=== PATIENT | male | born 1975 | race Hispanic/Latino ===

== ENCOUNTER 2018-10-27 15:13 | Outpatient (CLI) | payer OTHER ==
--- NOTE | 2018-10-27 16:28 | MRI ---
MRI OF THE LEFT KNEE WITHOUT CONTRAST: 10/27/18 INDICATION: Left knee pain, predominantly laterally with swelling. COMPARISON: Left knee radiograph dated 09/28/18. FINDINGS: There is subcutaneous swelling involving the anterior aspect of the left knee. There is mild edema ov erlying the MCL. The ACL, PCL, and LCLC are intact. The lateral and medial meniscus appears intact. No full thickness articular cartilage defect is grossly evident. There is mild diffuse thinning invol ving the femorotibial compartment. No large joint effusion is evident. No acute fracture is demonstra margie. The extensor mechanism is intact. IMPRESSION: 1. Subcutaneous edema involving the anterior left knee. 2. Grade I MCL sprain. 3. Mild chondrosis of the femorotibial compartments. POS: [facility]
== END 2018-10-27 15:14 | disposition home or self-care (01) ==
LOC: BICMRI 15:13
PROVIDERS: ATTEND Family Medicine
DX: S89.92XD Unspecified injury of left lower leg, subsequent encounter (principal); R60.0 Localized edema; S83.412A Sprain of medial collateral ligament of left knee, initial encounter; M22.2X2 Patellofemoral disorders, left knee

== ENCOUNTER 2022-12-29 14:45 | Inpatient (IN) | payer SELFPAY ==
[2022-12-29 15:19] LABS: #Eosinphils 0.1 thou/uL (0.0-0.7); #Monocytes 1.4 thou/uL (0.11-0.59); #Neutrophils 10.8 thou/uL (1.40-6.50); %Basophils 0.3 % (0.0-1.0); %Eosinophils 0.4 % (0.0-10.0); %Lymphocytes 8.3 % (21.0-51.0); %Neutrophils 79.4 % (42.0-75.0); Hematocrit 39.8 % (42.0-52.0); Hemoglobin 13.5 g/dL (14.0-18.0); Mean Corpuscular HGB CONC 33.9 g/dL (32.0-36.0); Mean Corpuscular Hemoglobin 32.5 pg (27.0-31.0); Mean Corpuscular Volume 95.9 fl (78.0-98.0); Mean Platelet Volume 11.2 fL (7.4-10.4); Platelet Count 141 10x3/uL (130-400); RBC Distribution Width 19.7 % (11.5-14.5); Red Blood Cell (RBC) Count 4.15 mill/uL (4.70-6.10); White Blood Cell (WBC) Count 13.6 10x3/uL (4.8-10.8)
[2022-12-29 15:45] LABS: ALT (SGPT) 393 U/L (8-55); AST (SGOT) 469 U/L (5-34); Albumin 2.4 g/dL (3.5-5.0); Alkaline Phosphatase 282 U/L (40-110); Lipase 786 U/L (8-78); Protein, Total 6.2 g/dL (6.0-8.3)
[2022-12-29 15:52] LABS: Chloride 103 mmol/L (98-107); Potassium 4.8 mmol/L (3.5-5.1); Sodium 133 mmol/L (136-145)
[2022-12-29 15:56] LABS: Acetaminophen Less than 10 mcg/mL (10.0-30.0); Alcohol Less than 10.0 mg/dL (Less than 10); Salicylate Less than 8.0 mg/dL (15.0-30.0)
[2022-12-29 16:07] LABS: Bilirubin, Total 23.5 mg/dL (0.2-1.2)
[2022-12-29] MEDS ORDERED: Ketorolac Tromethamine 30 MG/ML VIAL ONE (16:08)
[2022-12-29 16:13] LABS: ALT (SGPT) 407 U/L (8-55); AST (SGOT) 482 U/L (5-34); Albumin 2.3 g/dL (3.5-5.0); Alkaline Phosphatase 272 U/L (40-110); BUN (Urea Nitrogen) 26 mg/dL (8.9-20.6); Bilirubin, Total 24.2 mg/dL (0.2-1.2); Calc. Creatinine Clearance 0 mL/min (70-130); Calcium 7.9 mg/dL (7.8-10.44); Carbon Dioxide 21 mmol/L (22-29); Estimated GFR 56; Globulin 3.7 g/dL (2.4-3.5); Glucose 102 mg/dL (70-105)
[2022-12-29 16:32] LABS: Anion Gap 14 mmol/L (10-20)
[2022-12-29] MEDS ORDERED: Ondansetron PF 4 MG/2 ML Vial IVP PRN (16:42)
[2022-12-29] MEDS ORDERED: Promethazine HCl 25 MG/ML VIAL IM PRN (16:42)
[2022-12-29] MEDS ORDERED: Ondansetron PF 4 MG/2 ML Vial ONE (16:48)
[2022-12-29 17:17] LABS: INR-International Normal Ratio 1.9; PTT 47.4 sec (22.9-36.1); Prothrombin Time 22.2 sec (12.0-14.7)
[2022-12-29 17:37] LABS: Bilirubin, Direct Greater than 10.0 mg/dL (0.1-0.3)
[2022-12-29 17:42] LABS: Acetaminophen Less than 10 mcg/mL (10.0-30.0); Alcohol Less than 10.0 mg/dL (Less than 10); Magnesium 2.4 mg/dL (1.6-2.6); Salicylate Less than 8.0 mg/dL (15.0-30.0)
[2022-12-29] MEDS: Sodium Chloride 0.9% 1,000 ML IV SCH (20:47)
[2022-12-29 21:35] VITALS: BMI 43.5
[2022-12-30] MEDS: Sodium Chloride 0.9% 1,000 ML IV SCH ×3 (05:13→16:58)
[2022-12-30] MEDS ORDERED: FLU VACC QS2023-24(6MOS UP)/PF 60 MCG/0.5 ML SYRINGE IM ONE (09:00)
[2022-12-30 09:01] LABS: #Basophils 0.1 thou/uL (0.0-0.2); #Eosinphils 0.1 thou/uL (0.0-0.7); #Monocytes 1.4 thou/uL (0.11-0.59); #Neutrophils 9.4 thou/uL (1.40-6.50); %Basophils 0.5 % (0.0-1.0); %Eosinophils 1.1 % (0.0-10.0); %Lymphocytes 9.9 % (21.0-51.0); %Monocytes 11.6 % (0.0-10.0); %Neutrophils 75.4 % (42.0-75.0); Hematocrit 39.1 % (42.0-52.0); Hemoglobin 13.6 g/dL (14.0-18.0); Mean Corpuscular HGB CONC 34.8 g/dL (32.0-36.0); Mean Corpuscular Volume 94.9 fl (78.0-98.0); Mean Platelet Volume 11.9 fL (7.4-10.4); Platelet Count 134 10x3/uL (130-400); RBC Distribution Width 19.9 % (11.5-14.5); Red Blood Cell (RBC) Count 4.12 mill/uL (4.70-6.10); White Blood Cell (WBC) Count 12.4 10x3/uL (4.8-10.8)
[2022-12-30 10:04] LABS: ALT (SGPT) 356 U/L (8-55); AST (SGOT) 445 U/L (5-34); Albumin 2.2 g/dL (3.5-5.0); Alkaline Phosphatase 256 U/L (40-110); Anion Gap 15 mmol/L (10-20); BUN (Urea Nitrogen) 28 mg/dL (8.9-20.6); Bilirubin, Total 22.1 mg/dL (0.2-1.2); Calc. Creatinine Clearance 135 mL/min (70-130); Calcium 7.9 mg/dL (7.8-10.44); Carbon Dioxide 21 mmol/L (22-29); Chloride 105 mmol/L (98-107); Estimated GFR 62; Globulin 4.2 g/dL (2.4-3.5); Glucose 69 mg/dL (70-105); Potassium 4.9 mmol/L (3.5-5.1); Protein, Total 6.4 g/dL (6.0-8.3); Sodium 136 mmol/L (136-145)
[2022-12-30] MEDS: cefTRIAXone\\ROCEPHIN 2 GM in Sodium Chloride 0.9% 100 ML IVPB SCH (11:31)
[2022-12-30] MEDS ORDERED: Lidocaine 1% PF 5 ML VIAL ONE (12:13)
[2022-12-30] MEDS ORDERED: Sodium Bicarbonate 2.5 MEQ/5 ML VIAL ONE (12:13)
[2022-12-30] MEDS ORDERED: Magnevist 469MG/ML 20 ML VIAL ONE (13:59)
[2022-12-30 15:26] LABS: RBC Count-Automated (BF) 314 /cu.mm; WBC/Nucleated-Auto (BF) 93 /cu.mm
[2022-12-30 15:30] LABS: BF Color Yellow; Body Fluid Source Ascites Body Fluid; Clarity Hazy (Clear); Tube # EDTA
[2022-12-30 15:35] LABS: Fluid, Cholesterol Less than 9 mg/dL (Not Available); Fluid, Glucose 83 mg/dL (Not Available); Fluid, LDH 66 U/L (Not Available); Fluid, Protein Less than 1.0 g/dL (Not Available)
[2022-12-30 16:13] LABS: Bilirubin 4+ (Negative); Blood, Urine Trace (Negative); Clarity Turbid (Clear); Glucose, Urine (Dipstick) Normal (Negative); Ketone, Urine Negative (Negative); Leukocyte Negative Leu/uL (Negative); Nitrite Negative (Negative); Protein, Urine (Dipstick) Negative (Neg-Trace); RBC/HPF 0-3 HPF (0-3); Specific Gravity, Urine 1.019 (1.002-1.036); Squamous Epithelial None Seen HPF (0-3); Urobilinogen Normal mg/dL (Less than 2); pH, Urine 5.5 (5.0-9.0)
[2022-12-30 16:17] LABS: Bacteria/HPF 1+ HPF (None Seen)
[2022-12-30 16:39] LABS: BF Segmented Neutrophils 30 %; Cell Count Non Hematic 44 %; Eosinophils 1 %; Lymphocytes 24 %
[2022-12-30] MEDS: Albumin 25% 25 GM/100 ML BOT IVPB SCH ×2 (17:40→23:37)
[2022-12-31] MEDS: Sodium Chloride 0.9% 1,000 ML IV SCH (04:17)
[2022-12-31] MEDS: Albumin 25% 25 GM/100 ML BOT IVPB SCH ×2 (05:05→11:35)
[2022-12-31 06:49] LABS: #Eosinphils 0.3 thou/uL (0.0-0.7); #Monocytes 1.5 thou/uL (0.11-0.59); #Neutrophils 7.4 thou/uL (1.40-6.50); %Basophils 0.4 % (0.0-1.0); %Eosinophils 2.8 % (0.0-10.0); %Lymphocytes 11.3 % (21.0-51.0); %Monocytes 14.1 % (0.0-10.0); %Neutrophils 70.2 % (42.0-75.0); Hematocrit 35.6 % (42.0-52.0); Hemoglobin 12.5 g/dL (14.0-18.0); Mean Corpuscular HGB CONC 35.1 g/dL (32.0-36.0); Mean Corpuscular Hemoglobin 33.7 pg (27.0-31.0); Mean Platelet Volume 11.9 fL (7.4-10.4); Platelet Count 143 10x3/uL (130-400); RBC Distribution Width 19.8 % (11.5-14.5); Red Blood Cell (RBC) Count 3.71 mill/uL (4.70-6.10); White Blood Cell (WBC) Count 10.5 10x3/uL (4.8-10.8)
[2022-12-31 07:03] LABS: Bilirubin, Total 27.3 mg/dL (0.2-1.2)
[2022-12-31 07:10] LABS: Immunoglob - G (Total IgG) 2532 mg/dL (540-1822)
[2022-12-31 07:11] LABS: Immunoglob - M (Total IgM) 90 mg/dL (22-240)
[2022-12-31 07:44] LABS: ALT (SGPT) 316 U/L (8-55); AST (SGOT) 371 U/L (5-34); Alkaline Phosphatase 246 U/L (40-110); Anion Gap 12 mmol/L (10-20); BUN (Urea Nitrogen) 25 mg/dL (8.9-20.6); Calc. Creatinine Clearance 134 mL/min (70-130); Calcium 8.6 mg/dL (7.8-10.44); Carbon Dioxide 24 mmol/L (22-29); Chloride 103 mmol/L (98-107); Estimated GFR 62; Globulin 3.4 g/dL (2.4-3.5); Glucose 75 mg/dL (70-105); Potassium 3.8 mmol/L (3.5-5.1); Protein, Total 6.4 g/dL (6.0-8.3); Sodium 135 mmol/L (136-145)
[2022-12-31 08:58] LABS: INR-International Normal Ratio 2.3; Prothrombin Time 26.2 sec (12.0-14.7)
[2022-12-31] MEDS: cefTRIAXone\\ROCEPHIN 2 GM in Sodium Chloride 0.9% 100 ML IVPB SCH (10:46)
[2022-12-31] MEDS ORDERED: Phytonadione 10 MG/ML AMP PO SCH (11:00)
[2022-12-31] MEDS ORDERED: Polyethylene Glycol 3350 17 GM Packet PO SCH (11:00)
[2022-12-31] MEDS: methylPREDNISolone Sod Succ 40 MG VIAL IVP SCH (20:25)
[2023-01-01 06:14] LABS: #Monocytes 0.3 thou/uL (0.11-0.59); #Neutrophils 7.3 thou/uL (1.40-6.50); %Basophils 0.1 % (0.0-1.0); %Eosinophils 0.1 % (0.0-10.0); %Lymphocytes 7.8 % (21.0-51.0); %Monocytes 3.2 % (0.0-10.0); %Neutrophils 87.8 % (42.0-75.0); Hematocrit 33.6 % (42.0-52.0); Hemoglobin 11.5 g/dL (14.0-18.0); Mean Corpuscular HGB CONC 34.2 g/dL (32.0-36.0); Mean Corpuscular Hemoglobin 32.6 pg (27.0-31.0); Mean Corpuscular Volume 95.2 fl (78.0-98.0); Mean Platelet Volume 10.7 fL (7.4-10.4); Platelet Count 87 10x3/uL (130-400); RBC Distribution Width 19.1 % (11.5-14.5); Red Blood Cell (RBC) Count 3.53 mill/uL (4.70-6.10); White Blood Cell (WBC) Count 8.3 10x3/uL (4.8-10.8)
[2023-01-01 07:14] LABS: ALT (SGPT) 230 U/L (8-55); AST (SGOT) 289 U/L (5-34); Albumin 2.6 g/dL (3.5-5.0); Alkaline Phosphatase 191 U/L (40-110); Anion Gap 14 mmol/L (10-20); BUN (Urea Nitrogen) 22 mg/dL (8.9-20.6); Bilirubin, Total 23.1 mg/dL (0.2-1.2); Calc. Creatinine Clearance 149 mL/min (70-130); Calcium 7.8 mg/dL (7.8-10.44); Carbon Dioxide 22 mmol/L (22-29); Chloride 104 mmol/L (98-107); Estimated GFR 70; Globulin 2.8 g/dL (2.4-3.5); Glucose 102 mg/dL (70-105); Potassium 4.6 mmol/L (3.5-5.1); Protein, Total 5.4 g/dL (6.0-8.3); Sodium 135 mmol/L (136-145)
[2023-01-01 08:14] LABS: Prothrombin Time 23.8 sec (12.0-14.7)
[2023-01-01] MEDS: Polyethylene Glycol 3350 17 GM Packet PO SCH (08:17)
[2023-01-01] MEDS: methylPREDNISolone Sod Succ 40 MG VIAL IVP SCH ×2 (08:20→20:11)
[2023-01-01] MEDS: cefTRIAXone\\ROCEPHIN 2 GM in Sodium Chloride 0.9% 100 ML IVPB SCH (11:28)
[2023-01-01 11:36] LABS: INR-International Normal Ratio 1.9; Prothrombin Time 22.5 sec (12.0-14.7)
[2023-01-01 12:53] LABS: EliA Vaculitis New Method **** NEW METHOD ****; Mitochondrial Ab 2.2 U/mL (<4 Negative)
[2023-01-02 06:44] LABS: #Monocytes 0.6 thou/uL (0.11-0.59); %Basophils 0.2 % (0.0-1.0); %Lymphocytes 7.4 % (21.0-51.0); %Monocytes 4.1 % (0.0-10.0); %Neutrophils 87.6 % (42.0-75.0); Hematocrit 37.4 % (42.0-52.0); Hemoglobin 12.8 g/dL (14.0-18.0); Mean Corpuscular HGB CONC 34.2 g/dL (32.0-36.0); Mean Corpuscular Hemoglobin 33.4 pg (27.0-31.0); Mean Corpuscular Volume 97.7 fl (78.0-98.0); Mean Platelet Volume 11.5 fL (7.4-10.4); RBC Distribution Width 19.4 % (11.5-14.5); Red Blood Cell (RBC) Count 3.83 mill/uL (4.70-6.10); White Blood Cell (WBC) Count 13.7 10x3/uL (4.8-10.8)
[2023-01-02 06:45] LABS: Platelet Count 76 10x3/uL (130-400)
[2023-01-02 06:51] LABS: INR-International Normal Ratio 1.9; Prothrombin Time 22.5 sec (12.0-14.7)
[2023-01-02 07:20] LABS: ALT (SGPT) 204 U/L (8-55); AST (SGOT) 223 U/L (5-34); Albumin 2.9 g/dL (3.5-5.0); Alkaline Phosphatase 225 U/L (40-110); Anion Gap 14 mmol/L (10-20); BUN (Urea Nitrogen) 26 mg/dL (8.9-20.6); Calc. Creatinine Clearance 164 mL/min (70-130); Calcium 8.5 mg/dL (7.8-10.44); Carbon Dioxide 21 mmol/L (22-29); Chloride 104 mmol/L (98-107); Estimated GFR 79; Globulin 3.2 g/dL (2.4-3.5); Glucose 118 mg/dL (70-105); Potassium 4.8 mmol/L (3.5-5.1); Protein, Total 6.1 g/dL (6.0-8.3); Sodium 134 mmol/L (136-145)
[2023-01-02 07:38] LABS: Bilirubin, Total 24.3 mg/dL (0.2-1.2)
[2023-01-02] MEDS: methylPREDNISolone Sod Succ 40 MG VIAL IVP SCH ×2 (08:21→20:49)
[2023-01-02] MEDS: Polyethylene Glycol 3350 17 GM Packet PO SCH (08:21)
[2023-01-02] MEDS ORDERED: Non-Formulary Item 1 EACH (Omeprazole [Omeprazole] 20 MG Capsule.Dr) PO SCH (09:00)
[2023-01-02] MEDS ORDERED: Non-Formulary Item 1 EACH (Olmesartan Medoxomil [Olmesartan Medoxomil] 40 MG Tablet) PO SCH (09:00)
[2023-01-02] MEDS: Losartan 25 MG TAB PO SCH (09:03)
[2023-01-02] MEDS: cefTRIAXone\\ROCEPHIN 2 GM in Sodium Chloride 0.9% 100 ML IVPB SCH (10:24)
[2023-01-03 06:53] LABS: #Monocytes 1.1 thou/uL (0.11-0.59); #Neutrophils 15.4 thou/uL (1.40-6.50); %Basophils 0.2 % (0.0-1.0); %Lymphocytes 6.3 % (21.0-51.0); %Monocytes 6.2 % (0.0-10.0); %Neutrophils 85.6 % (42.0-75.0); Hemoglobin 12.4 g/dL (14.0-18.0); Mean Corpuscular HGB CONC 34.4 g/dL (32.0-36.0); Mean Corpuscular Hemoglobin 32.8 pg (27.0-31.0); Mean Corpuscular Volume 95.2 fl (78.0-98.0); Mean Platelet Volume 10.7 fL (7.4-10.4); Platelet Count 93 10x3/uL (130-400); RBC Distribution Width 19.5 % (11.5-14.5); Red Blood Cell (RBC) Count 3.78 mill/uL (4.70-6.10); White Blood Cell (WBC) Count 17.9 10x3/uL (4.8-10.8)
[2023-01-03 07:04] LABS: Prothrombin Time 23.7 sec (12.0-14.7)
[2023-01-03 07:21] LABS: ALT (SGPT) 175 U/L (8-55); AST (SGOT) 176 U/L (5-34); Albumin 2.6 g/dL (3.5-5.0); Alkaline Phosphatase 233 U/L (40-110); Anion Gap 10 mmol/L (10-20); BUN (Urea Nitrogen) 27 mg/dL (8.9-20.6); Bilirubin, Total 22.9 mg/dL (0.2-1.2); Calc. Creatinine Clearance 181 mL/min (70-130); Calcium 8.2 mg/dL (7.8-10.44); Carbon Dioxide 25 mmol/L (22-29); Chloride 103 mmol/L (98-107); Estimated GFR 89; Globulin 2.9 g/dL (2.4-3.5); Glucose 127 mg/dL (70-105); Potassium 4.7 mmol/L (3.5-5.1); Protein, Total 5.5 g/dL (6.0-8.3); Sodium 133 mmol/L (136-145)
[2023-01-03] MEDS: Furosemide 20 MG TAB PO SCH (09:21)
[2023-01-03] MEDS: methylPREDNISolone Sod Succ 40 MG VIAL IVP SCH ×2 (09:21→20:32)
[2023-01-03] MEDS: Spironolactone 25 MG TAB PO SCH (09:21)
[2023-01-03] MEDS: Losartan 25 MG TAB PO SCH (09:21)
[2023-01-03] MEDS: Polyethylene Glycol 3350 17 GM Packet PO SCH (09:21)
[2023-01-03] MEDS: cefTRIAXone\\ROCEPHIN 2 GM in Sodium Chloride 0.9% 100 ML IVPB SCH (11:09)
[2023-01-03] MEDS ORDERED: Acetaminophen 325 MG TAB PO SCH (21:30)
[2023-01-03] MEDS: Simethicone Chewable 80 MG TAB PO PRN (21:34)
[2023-01-04] MEDS: Polyethylene Glycol 3350 17 GM Packet PO SCH (09:04)
[2023-01-04] MEDS: Spironolactone 25 MG TAB PO SCH (09:04)
[2023-01-04] MEDS: methylPREDNISolone Sod Succ 40 MG VIAL IVP SCH (09:05)
[2023-01-04] MEDS: Furosemide 20 MG TAB PO SCH (09:05)
[2023-01-04] MEDS: Losartan 25 MG TAB PO SCH (09:05)
[2023-01-04 09:10] LABS: #Monocytes 1.6 thou/uL (0.11-0.59); #Neutrophils 15.8 thou/uL (1.40-6.50); %Basophils 0.2 % (0.0-1.0); %Neutrophils 80.9 % (42.0-75.0); Hematocrit 39.6 % (42.0-52.0); Hemoglobin 13.6 g/dL (14.0-18.0); Mean Corpuscular HGB CONC 34.3 g/dL (32.0-36.0); Mean Corpuscular Hemoglobin 33.1 pg (27.0-31.0); Mean Corpuscular Volume 96.4 fl (78.0-98.0); Mean Platelet Volume 10.4 fL (7.4-10.4); Platelet Count 104 10x3/uL (130-400); RBC Distribution Width 19.9 % (11.5-14.5); Red Blood Cell (RBC) Count 4.11 mill/uL (4.70-6.10); White Blood Cell (WBC) Count 19.6 10x3/uL (4.8-10.8)
[2023-01-04 09:22] LABS: Prothrombin Time 23.2 sec (12.0-14.7)
[2023-01-04 09:54] LABS: ALT (SGPT) 177 U/L (8-55); AST (SGOT) 169 U/L (5-34); Albumin 2.8 g/dL (3.5-5.0); Alkaline Phosphatase 247 U/L (40-110); Anion Gap 14 mmol/L (10-20); BUN (Urea Nitrogen) 29 mg/dL (8.9-20.6); Bilirubin, Total 24.9 mg/dL (0.2-1.2); Calc. Creatinine Clearance 155 mL/min (70-130); Calcium 8.4 mg/dL (7.8-10.44); Carbon Dioxide 25 mmol/L (22-29); Chloride 101 mmol/L (98-107); Estimated GFR 73; Glucose 118 mg/dL (70-105); Potassium 4.7 mmol/L (3.5-5.1); Protein, Total 5.8 g/dL (6.0-8.3); Sodium 135 mmol/L (136-145)
[2023-01-04] MEDS: cefTRIAXone\\ROCEPHIN 2 GM in Sodium Chloride 0.9% 100 ML IVPB SCH (10:52)
[2023-01-04] MEDS: Simethicone Chewable 80 MG TAB PO PRN (10:52)
[2023-01-04 13:49] VITALS: BP 133/80; TEMP 97.7
[2023-01-05] MEDS ORDERED: predniSONE 20 MG TAB PO SCH (08:00)
== END 2023-01-04 17:24 | disposition home or self-care (01) | DRG 432 ==
LOC: ERS 14:45 → T4-B 16:49
PROVIDERS: ADMIT Internal Medicine; ATTEND Hospitalist
PROC: 0W9G3ZX Drainage of Peritoneal Cavity, Percutaneous Approach, Diagnostic (ICD-10-PCS; principal; 2022-12-30)
PROC: 30233J1 Transfusion of Nonautologous Serum Albumin into Peripheral Vein, Percutaneous Approach (ICD-10-PCS; 2022-12-30)
PROC: 30233K1 Transfusion of Nonautologous Frozen Plasma into Peripheral Vein, Percutaneous Approach (ICD-10-PCS; 2023-01-01)
DX: K74.60 Unspecified cirrhosis of liver (principal); K76.7 Hepatorenal syndrome; K85.90 Acute pancreatitis without necrosis or infection, unspecified; N17.9 Acute kidney failure, unspecified; R18.8 Other ascites; K76.6 Portal hypertension; K75.4 Autoimmune hepatitis; I10 Essential (primary) hypertension; K21.9 Gastro-esophageal reflux disease without esophagitis; E88.09 Other disorders of plasma-protein metabolism, not elsewhere classified; K59.00 Constipation, unspecified; D64.9 Anemia, unspecified; Z98.890 Other specified postprocedural states
CPT/HCPCS: 36415; 36430; 49083; 70450; 74183; 76700; 80053; 80307; 81001; 81256; 82103; 82140; 82378; 82390; 82465; 82945; 83516; 83615; 83690; 83735; 84157; 85025; 85060; 85610; 85730; 86301; 86850; 86900; 86901; 87070; 87205; 88112; 88305; 89051; 93005; A9579; J0696; J1885; J2405; J2920; J3430; J3490; J7050; P9047; P9059

== ENCOUNTER 2023-01-22 22:23 | Inpatient (IN) | payer SELFPAY ==
[2023-01-23] MEDS ORDERED: Ondansetron PF 4 MG/2 ML Vial ONE (00:21)
[2023-01-23] MEDS ORDERED: Sodium Chloride 0.9% 100 ML ONE ×2 (00:22→03:18)
[2023-01-23] MEDS ORDERED: cefTRIAXone (ROCEPHIN) 1 GM VIAL ONE (00:22)
[2023-01-23 00:41] LABS: Actual Bicarbonate (HCO3v) 24.3 mEq/L (22-28); Calcium, Ionized (venous) 1.07 mmol/L (1.16-1.32); Chloride (VBG) 92 mmol/L (98-106); Hematocrit-VBG 50 % (42.0-52.0); Potassium (VBG) 5.88 mmol/L (3.70-5.30); Sodium 129 mmol/L (133-146); pH (venous) 7.334 (7.32-7.43)
[2023-01-23 00:49] LABS: #Monocytes 1.3 thou/uL (0.11-0.59); #Neutrophils 12.7 thou/uL (1.40-6.50); %Basophils 0.1 % (0.0-1.0); %Lymphocytes 4.8 % (21.0-51.0); %Monocytes 8.6 % (0.0-10.0); %Neutrophils 82.3 % (42.0-75.0); Hematocrit 45.6 % (42.0-52.0); Hemoglobin 16.3 g/dL (14.0-18.0); Mean Corpuscular HGB CONC 35.7 g/dL (32.0-36.0); Mean Corpuscular Hemoglobin 35.1 pg (27.0-31.0); Mean Corpuscular Volume 98.1 fl (78.0-98.0); RBC Distribution Width 22.1 % (11.5-14.5); Red Blood Cell (RBC) Count 4.65 mill/uL (4.70-6.10); White Blood Cell (WBC) Count 15.4 10x3/uL (4.8-10.8)
[2023-01-23 01:02] LABS: Platelet Count 71 10x3/uL (130-400)
[2023-01-23 01:13] LABS: INR-International Normal Ratio 2.8; PTT 50.3 sec (22.9-36.1); Prothrombin Time 30.8 sec (12.0-14.7)
[2023-01-23 01:15] LABS: Troponin I 0.036 ng/mL (< 0.028)
[2023-01-23 01:20] LABS: Bilirubin, Total 34.1 mg/dL (0.2-1.2)
[2023-01-23 01:53] LABS: ALT (SGPT) 275 U/L (8-55); AST (SGOT) 304 U/L (5-34); Albumin 2.2 g/dL (3.5-5.0); Alkaline Phosphatase 245 U/L (40-110); Anion Gap 19 mmol/L (10-20); BUN (Urea Nitrogen) 76 mg/dL (8.9-20.6); Calc. Creatinine Clearance 0 mL/min (70-130); Calcium 8.5 mg/dL (7.8-10.44); Carbon Dioxide 23 mmol/L (22-29); Chloride 92 mmol/L (98-107); Estimated GFR 22; Globulin 3.4 g/dL (2.4-3.5); Glucose 124 mg/dL (70-105); Lipase 207 U/L (8-78); Potassium 5.9 mmol/L (3.5-5.1); Protein, Total 5.6 g/dL (6.0-8.3); Sodium 128 mmol/L (136-145)
[2023-01-23 01:55] LABS: Platelet Adequacy Comment Appears Decreased
[2023-01-23] MEDS ORDERED: Albumin 25% 25 GM/100 ML BOT IVPB SCH ×2 (03:15→09:00)
[2023-01-23] MEDS ORDERED: Piperacillin/Tazobactam 4.5 GM VIAL ONE (03:17)
[2023-01-23] MEDS ORDERED: Calcium Gluc 4.6 MEQ/10 ML (100 MG/ML) SLOW IVP ONE (03:26)
[2023-01-23] MEDS ORDERED: Vancomycin (BATCH) 2 GM in Premix 1 BAG IVPB SCH (03:30)
[2023-01-23] MEDS ORDERED: Dextrose 5 %-0.45 % NaCl 1,000 ML IV SCH (03:30)
[2023-01-23] MEDS ORDERED: CALCIUM GLUC 1 GM/NS 50 ML 1 GM in Premix 1 BAG IVPB SCH (03:45)
[2023-01-23 03:52] LABS: Lactic Acid 3.3 mmol/L (0.5-2.2)
[2023-01-23] MEDS ORDERED: Piperacillin/Tazobactam 3.375 GM in Sodium Chloride 0.9% 100 ML IVPB SCH ×2 (07:00→09:00)
[2023-01-23 07:39] VITALS: BMI 40.9
[2023-01-23] MEDS: Sodium Bicarbonate 100 MEQ in Dextrose 5% in Water 1,000 ML IV SCH ×2 (08:29→20:00)
[2023-01-23] MEDS ORDERED: Morphine 4 MG/ML VIAL SLOW IVP PRN (08:39)
[2023-01-23] MEDS ORDERED: Morphine 2 MG/ML VIAL SLOW IVP PRN (08:39)
[2023-01-23 09:54] LABS: Anion Gap 18 mmol/L (10-20); BUN (Urea Nitrogen) 79 mg/dL (8.9-20.6); Calc. Creatinine Clearance 56 mL/min (70-130); Calcium 8.1 mg/dL (7.8-10.44); Carbon Dioxide 21 mmol/L (22-29); Chloride 96 mmol/L (98-107); Estimated GFR 23; Glucose 139 mg/dL (70-105); Potassium 5.3 mmol/L (3.5-5.1); Sodium 130 mmol/L (136-145)
[2023-01-23] MEDS: Ondansetron PF 4 MG/2 ML Vial IVP PRN (10:00)
[2023-01-23] MEDS ORDERED: LOKELMA 10 GM PACKET PO SCH (10:15)
[2023-01-23 10:38] LABS: Troponin I 0.037 ng/mL (< 0.028)
[2023-01-23] MEDS ORDERED: FLU VACC QS2023-24(6MOS UP)/PF 60 MCG/0.5 ML SYRINGE IM ONE (12:45)
[2023-01-23 16:25] LABS: Anion Gap 16 mmol/L (10-20); BUN (Urea Nitrogen) 79 mg/dL (8.9-20.6); Calc. Creatinine Clearance 53 mL/min (70-130); Calcium 8.1 mg/dL (7.8-10.44); Carbon Dioxide 24 mmol/L (22-29); Chloride 94 mmol/L (98-107); Estimated GFR 22; Glucose 147 mg/dL (70-105); Sodium 129 mmol/L (136-145)
[2023-01-23] MEDS ORDERED: Ursodiol 300 MG CAP PO SCH (17:00)
[2023-01-23 18:02] LABS: Bacteria/HPF None Seen HPF (None Seen); Bilirubin 3+ (Negative); Blood, Urine 1+ (Negative); Clarity Turbid (Clear); Glucose, Urine (Dipstick) Normal (Negative); Ketone, Urine Negative (Negative); Leukocyte 25 Leu/uL (Negative); Nitrite Negative (Negative); Protein, Urine (Dipstick) 10 mg/dL (Neg-Trace); RBC/HPF 0-3 HPF (0-3); Specific Gravity, Urine 1.018 (1.002-1.036); Squamous Epithelial 0-3 HPF (0-3); Urobilinogen Normal mg/dL (Less than 2); pH, Urine 5.5 (5.0-9.0)
[2023-01-23] MEDS: Piperacillin/Tazobactam 3.375 GM in Sodium Chloride 0.9% 100 ML IVPB SCH (22:44)
[2023-01-24 05:01] LABS: #Monocytes 0.9 thou/uL (0.11-0.59); #Neutrophils 7.7 thou/uL (1.40-6.50); %Basophils 0.1 % (0.0-1.0); %Eosinophils 0.1 % (0.0-10.0); %Lymphocytes 10.4 % (21.0-51.0); %Monocytes 9.4 % (0.0-10.0); %Neutrophils 77.1 % (42.0-75.0); Hematocrit 36.7 % (42.0-52.0); Mean Corpuscular HGB CONC 35.7 g/dL (32.0-36.0); Mean Corpuscular Hemoglobin 35.1 pg (27.0-31.0); Mean Corpuscular Volume 98.4 fl (78.0-98.0); Mean Platelet Volume 11.4 fL (7.4-10.4); RBC Distribution Width 21.5 % (11.5-14.5); Red Blood Cell (RBC) Count 3.73 mill/uL (4.70-6.10)
[2023-01-24 05:33] LABS: ALT (SGPT) 191 U/L (8-55); AST (SGOT) 216 U/L (5-34); Albumin 2.2 g/dL (3.5-5.0); Alkaline Phosphatase 161 U/L (40-110); Anion Gap 15 mmol/L (10-20); BUN (Urea Nitrogen) 75 mg/dL (8.9-20.6); Bilirubin, Total 33.6 mg/dL (0.2-1.2); Calc. Creatinine Clearance 58 mL/min (70-130); Calcium 7.9 mg/dL (7.8-10.44); Carbon Dioxide 25 mmol/L (22-29); Chloride 96 mmol/L (98-107); Estimated GFR 25; Globulin 2.5 g/dL (2.4-3.5); Glucose 126 mg/dL (70-105); Iron 84 ug/dL (65-175); Iron 88 ug/dL (65-175); Iron Binding Capacity, Total 65 mcg/dL (261-462); Iron Binding Capacity, Total 68 mcg/dL (261-462); Potassium 4.7 mmol/L (3.5-5.1); Protein, Total 4.7 g/dL (6.0-8.3); Sodium 131 mmol/L (136-145)
[2023-01-24 05:40] LABS: Platelet Count 44 10x3/uL (130-400)
[2023-01-24 05:41] LABS: Hemoglobin 13.1 g/dL (14.0-18.0)
[2023-01-24] MEDS: Piperacillin/Tazobactam 3.375 GM in Sodium Chloride 0.9% 100 ML IVPB SCH ×2 (06:33→14:05)
[2023-01-24] MEDS: Ondansetron PF 4 MG/2 ML Vial IVP PRN ×2 (07:48→18:32)
[2023-01-24] MEDS ORDERED: Sodium Bicarb 50 MEQ/50 ML VIAL FS SCH (09:15)
[2023-01-24] MEDS ORDERED: Lidocaine 1% (PF) 30 ML VIAL FS SCH (09:15)
[2023-01-24 10:52] LABS: RBC Count-Automated (BF) 425 /cu.mm; WBC/Nucleated-Auto (BF) 236 /cu.mm
[2023-01-24 10:53] LABS: Body Fluid Source Abscess Fluid; Tube # 1
[2023-01-24 10:54] LABS: BF Color Yellow; Clarity Clear (Clear)
[2023-01-24 11:05] LABS: BF Segmented Neutrophils 38 %; Cell Count Non Hematic 16 %; Eosinophils 2 %; Lymphocytes 44 %
[2023-01-24 11:49] LABS: Syphilis Antibody Nonreactive (Nonreactive); Syphilis Antibody Index 0.11 S/CO (<1.00 Non-Reactive)
[2023-01-24] MEDS: Sodium Bicarbonate 100 MEQ in Dextrose 5% in Water 1,000 ML IV SCH (12:35)
[2023-01-24] MEDS ORDERED: Prochlorperazine Edisylate 10 MG in Sodium Chloride 0.9% 50 ML IVPB SCH (22:45)
[2023-01-25] MEDS: Ondansetron PF 4 MG/2 ML Vial IVP PRN (00:28)
[2023-01-25] MEDS: Piperacillin/Tazobactam 3.375 GM in Sodium Chloride 0.9% 100 ML IVPB SCH ×4 (06:34→22:02)
[2023-01-25 06:49] LABS: %Basophils 0.1 % (0.0-1.0); %Eosinophils 0.2 % (0.0-10.0); %Lymphocytes 8.9 % (21.0-51.0); %Monocytes 9.7 % (0.0-10.0); %Neutrophils 77.7 % (42.0-75.0); Hematocrit 36.4 % (42.0-52.0); Hemoglobin 13.1 g/dL (14.0-18.0); Mean Corpuscular Hemoglobin 35.3 pg (27.0-31.0); Mean Corpuscular Volume 98.1 fl (78.0-98.0); RBC Distribution Width 21.8 % (11.5-14.5); Red Blood Cell (RBC) Count 3.71 mill/uL (4.70-6.10); White Blood Cell (WBC) Count 10.3 10x3/uL (4.8-10.8)
[2023-01-25 07:08] LABS: Platelet Count 45 10x3/uL (130-400)
[2023-01-25 07:20] LABS: INR-International Normal Ratio 3.1; Prothrombin Time 33.7 sec (12.0-14.7)
[2023-01-25 07:24] LABS: Bilirubin, Total 30.2 mg/dL (0.2-1.2)
[2023-01-25] MEDS: Albumin 25% 25 GM/100 ML BOT IVPB SCH ×3 (11:34→22:10)
[2023-01-25] MEDS: Octreotide Acetate 100 MCG/ML VIAL SC SCH ×2 (14:37→22:01)
[2023-01-25] MEDS: Midodrine HCl 5 MG TAB PO SCH ×3 (14:38→22:02)
[2023-01-25 16:20] LABS: Albumin 2.3 g/dL (3.5-5.0)
[2023-01-25 16:21] LABS: Chloride 93 mmol/L (98-107); Potassium 4.3 mmol/L (3.5-5.1); Sodium 131 mmol/L (136-145)
[2023-01-25 16:23] LABS: Globulin 2.1 g/dL (2.4-3.5); Glucose 161 mg/dL (70-105); Protein, Total 4.4 g/dL (6.0-8.3)
[2023-01-25 16:24] LABS: Anion Gap 14 mmol/L (10-20); Carbon Dioxide 28 mmol/L (22-29)
[2023-01-25 16:25] LABS: Alkaline Phosphatase 149 U/L (40-110)
[2023-01-25 16:26] LABS: Calc. Creatinine Clearance 25 mL/min (70-130); Estimated GFR 24
[2023-01-25 16:27] LABS: BUN (Urea Nitrogen) 75 mg/dL (8.9-20.6)
[2023-01-25 16:28] LABS: ALT (SGPT) 181 U/L (8-55); AST (SGOT) 206 U/L (5-34)
[2023-01-26] MEDS: Ondansetron PF 4 MG/2 ML Vial IVP PRN (01:56)
[2023-01-26 04:44] LABS: #Eosinphils 0.1 thou/uL (0.0-0.7); #Monocytes 0.6 thou/uL (0.11-0.59); #Neutrophils 5.1 thou/uL (1.40-6.50); %Basophils 0.3 % (0.0-1.0); %Eosinophils 1.4 % (0.0-10.0); %Lymphocytes 13.4 % (21.0-51.0); %Monocytes 8.8 % (0.0-10.0); %Neutrophils 72.4 % (42.0-75.0); Hematocrit 31.4 % (42.0-52.0); Hemoglobin 11.1 g/dL (14.0-18.0); Mean Corpuscular HGB CONC 35.4 g/dL (32.0-36.0); Mean Corpuscular Volume 99.1 fl (78.0-98.0); Mean Platelet Volume 10.8 fL (7.4-10.4); RBC Distribution Width 21.4 % (11.5-14.5); Red Blood Cell (RBC) Count 3.17 mill/uL (4.70-6.10)
[2023-01-26 04:56] LABS: INR-International Normal Ratio 3.4; Prothrombin Time 35.7 sec (12.0-14.7)
[2023-01-26 05:15] LABS: Platelet Count 33 10x3/uL (130-400)
[2023-01-26 05:27] LABS: Bilirubin, Total 32.9 mg/dL (0.2-1.2)
[2023-01-26] MEDS: Octreotide Acetate 100 MCG/ML VIAL SC SCH ×3 (05:49→21:56)
[2023-01-26] MEDS: Albumin 25% 25 GM/100 ML BOT IVPB SCH ×3 (05:49→23:00)
[2023-01-26] MEDS: Piperacillin/Tazobactam 3.375 GM in Sodium Chloride 0.9% 100 ML IVPB SCH ×3 (05:50→21:56)
[2023-01-26 06:51] LABS: ALT (SGPT) 141 U/L (8-55); AST (SGOT) 158 U/L (5-34); Albumin 2.5 g/dL (3.5-5.0); Alkaline Phosphatase 123 U/L (40-110); Anion Gap 14 mmol/L (10-20); BUN (Urea Nitrogen) 69 mg/dL (8.9-20.6); Calc. Creatinine Clearance 27 mL/min (70-130); Carbon Dioxide 28 mmol/L (22-29); Chloride 95 mmol/L (98-107); Estimated GFR 26; Globulin 1.6 g/dL (2.4-3.5); Glucose 129 mg/dL (70-105); Potassium 4.1 mmol/L (3.5-5.1); Protein, Total 4.1 g/dL (6.0-8.3); Sodium 133 mmol/L (136-145)
[2023-01-26] MEDS: Midodrine HCl 5 MG TAB PO SCH ×3 (09:12→21:57)
[2023-01-26] MEDS ORDERED: Polyethylene Glycol 3350 17 GM Packet PO PRN (14:00)
[2023-01-27 00:07] VITALS: TEMP 98.8
[2023-01-28 04:13] LABS: Arsenic - Blood 2 ug/L (0-9); Lead - Blood <1.0 ug/dL (0.0-3.4); Mercury - Blood <1.0 ug/L (0.0-14.9)
== END 2023-01-27 01:41 | disposition short-term general hospital (02) | DRG 441 ==
LOC: ERS 22:23 → CCU 01-23 03:15 → IMCU/EMU 01-24 21:27
PROVIDERS: ADMIT Student in an Organized Health Care Education/Training Program; ATTEND Internal Medicine
PROC: 0W9G3ZZ Drainage of Peritoneal Cavity, Percutaneous Approach (ICD-10-PCS; principal; 2023-01-23)
PROC: 4A043R1 Measurement of Venous Saturation, Peripheral, Percutaneous Approach (ICD-10-PCS; 2023-01-23)
PROC: 30233J1 Transfusion of Nonautologous Serum Albumin into Peripheral Vein, Percutaneous Approach (ICD-10-PCS; 2023-01-23)
DX: K72.00 Acute and subacute hepatic failure without coma (principal); K76.7 Hepatorenal syndrome; N17.9 Acute kidney failure, unspecified; E87.1 Hypo-osmolality and hyponatremia; N18.4 Chronic kidney disease, stage 4 (severe); R18.8 Other ascites; Z68.41 Body mass index [BMI] 40.0-44.9, adult; R79.89 Other specified abnormal findings of blood chemistry; K74.60 Unspecified cirrhosis of liver; E66.9 Obesity, unspecified; K21.9 Gastro-esophageal reflux disease without esophagitis; R74.01 Elevation of levels of liver transaminase levels; D69.6 Thrombocytopenia, unspecified; E87.5 Hyperkalemia; E83.41 Hypermagnesemia; R77.8 Other specified abnormalities of plasma proteins; E80.6 Other disorders of bilirubin metabolism; I12.9 Hypertensive chronic kidney disease with stage 1 through stage 4 chronic kidney disease, or unspecified chronic kidney disease; D63.1 Anemia in chronic kidney disease; Z79.899 Other long term (current) drug therapy
CPT/HCPCS: 36415; 36416; 49083; 74181; 76705; 80053; 81001; 82042; 82140; 82175; 82728; 82805; 83540; 83550; 83605; 83655; 83690; 83735; 83825; 83880; 84155; 84484; 85025; 85060; 85610; 85730; 86622; 86780; 87040; 87070; 87205; 89051; 93005; 96365; 96367; 96375; 99195; J0696; J0780; J2001; J2354; J2405; J2543; J3370; J3490; J7042; J7070; P9047